=== PATIENT | male | born 1985 | race Caucasian/White ===

== ENCOUNTER 2022-12-10 09:16 | Emergency (ER) | payer OTHER ==
[~2022-12-10] VITALS: Ht 172.7 cm; Wt 77.1 kg
[2022-12-10 09:18] VITALS: BP 110/74
[2022-12-10] MEDS ORDERED: ALUMINUM HYD/MAG/SIMETHICONE 30 ML UDC PO ONE (09:45)
[2022-12-10] MEDS ORDERED: FAMOTIDINE 20 MG TAB PO ONE (09:45)
[2022-12-10 10:06] LABS: BASOPHILS % (AUTO) 0.2 % (0.0-2.0); EOSINOPHILS # (AUTO) 0.1 K/uL (0-0.4); EOSINOPHILS % (AUTO) 1.2 % (0.0-4.0); HEMATOCRIT 47.5 % (36-52); HEMOGLOBIN 16.2 g/dL (12.0-18.0); LYMPHOCYTES # (AUTO) 0.7 K/uL (2.0-11.5); LYMPHOCYTES % (AUTO) 7.4 % (20.5-51.1); MEAN CORPUSCULAR HEMOGLOBIN 28 pg (27-31); MEAN CORPUSCULAR HGB CONC 34 g/dL (33-37); MEAN CORPUSCULAR VOLUME 82.2 fL (80-94); MONOCYTES # (AUTO) 0.4 K/uL (0.8-1.0); MONOCYTES % (AUTO) 4.3 % (1.7-9.3); NEUTROPHILS # (AUTO) 8.6 K/uL (1.8-7.7); NEUTROPHILS % (AUTO) 86.9 % (42.2-75.2); PLATELET COUNT (AUTO) 251 K/uL (140-450); RED BLOOD CELL COUNT(AUTO) 5.77 MIL/uL (4.20-6.10); RED CELL DISTRIBUTION WIDTH 13.7 % (11.6-13.7); WHITE BLOOD COUNT (AUTO) 9.9 K/uL (4.8-10.8)
--- NOTE | 2022-12-10 10:15 | NUR ---
PT BIB BLS RUN C/O EPIGASTRIC PAIN SINCE THIS AM. IV INSERTED TO LEFT AC #[id number] BLOOD DRAWN AND SENT TO LAB. MEDICATED PER ORDER. TOLERATED WELL. CALLED PHARMACY REGARDING LIDOCAINE MISSING FROM OMNICELL, STATES WILL DELIVER TO ER
[2022-12-10 10:27] LABS: ALBUMIN 4.3 g/dL (3.4-5.0); CARBON DIOXIDE 27.8 mmol/L (21-32); POTASSIUM 3.8 mmol/L (3.5-5.1); TOTAL BILIRUBIN 0.5 mg/dL (0.0-1.0)
[2022-12-10] MEDS ORDERED: OMEP20EC11 PO (11:07)
[2022-12-10] MEDS ORDERED: ALUM355S59 PO (11:07)
== END 2022-12-10 11:15 | disposition home or self-care (01) ==
LOC: MED 09:16
DX: R10.13 Epigastric pain (principal); Z79.899 Other long term (current) drug therapy
CPT/HCPCS: 36415; 80053; 83690; 85025; 99283